=== PATIENT | female | born 1945 | race Hispanic/Latino ===

== ENCOUNTER → 2018-07-03 | Outpatient (CLI) | payer OTHER | END | disposition home or self-care (01) | LOC: RAH 08:07 | PROVIDERS: ATTEND Family Medicine | DX: Z12.31 Encounter for screening mammogram for malignant neoplasm of breast (principal); I12.0 Hypertensive chronic kidney disease with stage 5 chronic kidney disease or end stage renal disease; N18.6 End stage renal disease | CPT/HCPCS: 77067 ==

== ENCOUNTER → 2021-04-22 | Outpatient (CLI) | payer OTHER | END | disposition home or self-care (01) | LOC: RAH 15:24 | PROVIDERS: ATTEND Family Medicine | DX: Z12.31 Encounter for screening mammogram for malignant neoplasm of breast (principal) | CPT/HCPCS: 77067 ==

== ENCOUNTER → 2024-12-22 | Outpatient (CLI) | payer OTHER ==
--- NOTE | 2024-12-22 15:48 | HMCIMG ---
MR SPINAL CANAL, LUMBAR WO CON HISTORY: No additional history given. COMPARISON: None TECHNIQUE: MRI of the lumbar spine was performed utilizing multiple pulse sequences in axial , coronal and sagittal plane. Patient was not given contrast through intravenous route. FINDINGS: No abnormal signal intensity is seen of the visualized bony structure. No loss of vertebral height is seen. There is straightening of normal lumbar curvature which may be related to muscle spasm or positioning. Degenerative disc signals are present at all lumbar spine levels. Visualized distal conus is unremarkable. At the T12-L1 level, there is spondylotic disc with central disc protrusion and bilateral ligamentum flavum hypertrophy causing anterior thecal sac compression with bilateral lateral recess stenosis and bilateral neural foraminal stenosis. The thecal sac measures approximately 7.2 mm in its anterior posterior dimension. At the L1-L2 level, there is spondylotic disc with central disc protrusion and bilateral ligamentum flavum hypertrophy causing anterior thecal sac compression with bilateral lateral recess stenosis and bilateral neural foraminal stenosis. The thecal sac measures approximately 7.2 mm in its anterior posterior dimension. At the L2-3 level, there is spondylotic disc disc protrusion and bilateral ligamentum flavum hypertrophy and short pedicles causing anterior thecal sac compression with bilateral lateral recess stenosis and bilateral neural foraminal stenosis. The thecal sac measures approximately 2 mm in its anterior posterior dimension. At the L3-4 level, there is spondylotic disc with central disc protrusion/bilateral ligamentum flavum hypertrophy and facet hypertrophy causing anterior thecal sac compression with bilateral lateral recess stenosis and bilateral neural foraminal stenosis. The thecal sac measures approximately 2 mm in its anterior posterior dimension. At the L4-5 level, there is spondylotic disc with central disc protrusion/herniation with bilateral facet hypertrophy and bilateral ligamentum flavum hypertrophy causing anterior thecal sac compression with bilateral lateral recess stenosis and bilateral neural foraminal stenosis. The thecal sac measures approximately 4.9 mm in its anterior posterior dimension. At the L5-S1 level, there is spondylotic disc with central disc protrusion and bilateral ligamentum flavum hypertrophy causing anterior thecal sac compression with bilateral lateral recess stenosis and bilateral neural foraminal stenosis. The thecal sac measures approximately 4.8 mm in its anterior posterior dimension. IMPRESSION: 1. 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
== END | disposition home or self-care (01) ==
LOC: RAH 14:19
PROVIDERS: ATTEND Family Medicine
DX: M47.26 Other spondylosis with radiculopathy, lumbar region (principal); M43.16 Spondylolisthesis, lumbar region; M48.07 Spinal stenosis, lumbosacral region; M48.061 Spinal stenosis, lumbar region without neurogenic claudication
CPT/HCPCS: 72148

== ENCOUNTER → 2025-01-12 | Outpatient (CLI) | payer OTHER ==
--- NOTE | 2025-01-12 12:02 | HMCIMG ---
US ARTERIAL BILAT LOW EXT DUPL HISTORY: Bilateral leg pain COMPARISON: None TECHNIQUE: Bilateral lower extremity arterial Doppler ultrasound study was performed. FINDINGS: Normal triphasic and biphasic arterial waveforms are noted in the common femoral, deep femoral, superficial femoral, popliteal, posterior tibial and dorsalis pedal arteries. On the right, the peak systolic velocity of the common femoral artery is 196 cm/s, the proximal femoral artery is 188 cm/s, the mid femoral artery is 153 cm/s, the distal femoral artery is 139 cm/s, the proximal popliteal artery is 66 cm/s, the distal popliteal artery is 68 cm/s, the anterior tibial artery is 75 cm/s, the posterior tibial artery artery is 64 cm/s,and the dorsalis pedal artery is 78 cm/s. On the left, the peak systolic velocity of the common femoral artery is 200 cm/s, the proximal femoral artery is 187 cm/s, the mid femoral artery is 95 cm/s, the distal femoral artery is 108 cm/s, the proximal popliteal artery is 105 cm/s, the distal popliteal artery is 80 cm/s, the anterior tibial artery is 72 cm/s, the posterior tibial artery artery is 45 cm/s,and the dorsalis pedal artery is 89 cm/s. IMPRESSION: 1. Atherosclerotic disease. 2. Otherwise normal triphasic and biphasic arterial waveforms noted of the lower extremity artery system.
== END | disposition home or self-care (01) ==
LOC: RAH 11:00
PROVIDERS: ATTEND Family Medicine
DX: I70.8 Atherosclerosis of other arteries (principal); M79.605 Pain in left leg; M79.604 Pain in right leg; I70.0 Atherosclerosis of aorta
CPT/HCPCS: 93925